=== PATIENT | female | born 1985 | race African-American/Black ===

== ENCOUNTER 2024-04-26 20:49 | Inpatient (IN) | payer OTHER, SELFPAY ==
[2024-04-26 21:22] LABS: #Basophils 0.05 10x3/uL (0.0-0.2); %Basophils 0.6 % (0.0-1.0); %Eosinophils 2.9 % (0.0-10.0); %Lymphocytes 37.9 % (21.0-51.0); %Monocytes 6.8 % (0.0-10.0); %Neutrophils 51.7 % (42.0-75.0); Hematocrit 36.6 % (36.0-47.0); Mean Corpuscular HGB CONC 32.8 g/dL (32.0-36.0); Mean Corpuscular Hemoglobin 29.3 pg (27.0-31.0); Mean Corpuscular Volume 89.3 fL (78.0-98.0); Mean Platelet Volume 10.2 fL (7.4-10.4); Platelet Count 300 10x3/uL (130-400); RBC Distribution Width 12.1 % (11.5-14.5)
[2024-04-26 21:36] LABS: ALT (SGPT) 17 U/L (8-55); AST (SGOT) 16 U/L (5-34); Albumin 3.6 g/dL (3.5-5.0); Alkaline Phosphatase 50 U/L (40-110); Anion Gap 16 mmol/L (10-20); BUN (Urea Nitrogen) 9 mg/dL (7.0-18.7); Bilirubin, Total 0.2 mg/dL (0.2-1.2); Calc. Creatinine Clearance 0 mL/min (70-130); Calcium 9.4 mg/dL (7.8-10.44); Carbon Dioxide 23 mmol/L (22-29); Chloride 110 mmol/L (98-107); Estimated GFR 96; Globulin 3.4 g/dL (2.4-3.5); Glucose 109 mg/dL (70-105); Potassium 4.1 mmol/L (3.5-5.1); Sodium 145 mmol/L (136-145)
[2024-04-26] MEDS ORDERED: Sodium Chloride 0.9% 100 ML ONE (22:00)
[2024-04-26] MEDS ORDERED: Cefepime 2 GM VIAL ONE (22:00)
[2024-04-27] MEDS ORDERED: Ampicillin/Sulbactam 3 GM VIAL ONE (01:58)
[2024-04-27] MEDS ORDERED: Sodium Chloride 0.9% 100 ML ONE (01:58)
[2024-04-27] MEDS ORDERED: Acetaminophen 325 MG TAB PO PRN (02:18)
[2024-04-27] MEDS ORDERED: Ondansetron PF 4 MG/2 ML Vial IVP PRN (02:18)
[2024-04-27 02:34] VITALS: BMI 26.6
[2024-04-27] MEDS: Vancomycin (BATCH) 2 GM in Premix 1 BAG IVPB SCH (03:07)
[2024-04-27] MEDS: Enoxaparin 40 MG (0.4 mL) SYRINGE SC SCH ×2 (03:08→07:24)
[2024-04-27 07:12] LABS: #Basophils 0.03 10x3/uL (0.0-0.2); %Basophils 0.3 % (0.0-1.0); %Eosinophils 2.2 % (0.0-10.0); %Monocytes 5.6 % (0.0-10.0); %Neutrophils 66.7 % (42.0-75.0); Hematocrit 35.4 % (36.0-47.0); Hemoglobin 11.2 g/dL (12.0-16.0); Mean Corpuscular HGB CONC 31.6 g/dL (32.0-36.0); Mean Corpuscular Hemoglobin 29.1 pg (27.0-31.0); Mean Corpuscular Volume 91.9 fL (78.0-98.0); Mean Platelet Volume 10.3 fL (7.4-10.4); Platelet Count 262 10x3/uL (130-400); RBC Distribution Width 12.2 % (11.5-14.5); Red Blood Cell (RBC) Count 3.85 mill/uL (4.20-5.40)
[2024-04-27 07:55] LABS: Anion Gap 11 mmol/L (10-20); BUN (Urea Nitrogen) 7 mg/dL (7.0-18.7); Calc. Creatinine Clearance 131 mL/min (70-130); Calcium 8.6 mg/dL (7.8-10.44); Carbon Dioxide 19 mmol/L (22-29); Chloride 114 mmol/L (98-107); Estimated GFR 115; Glucose 94 mg/dL (70-105); Potassium 3.8 mmol/L (3.5-5.1); Sodium 140 mmol/L (136-145)
[2024-04-27] MEDS: Ampicillin/Sulbactam 3 GM in Sodium Chloride 0.9% 100 ML IVPB SCH (08:33)
[2024-04-27 13:41] VITALS: BMI 26.6
[2024-04-27 14:47] LABS: Hep C Index 0.19 S/CO (0-0.79)
[2024-04-27] MEDS: HYDROcodone/Acetaminophen 5/325 mg Tablet PO PRN (15:23)
[2024-04-27] MEDS ORDERED: Iopamidol-370 76% 500 ML MDV (1 ML CHARGE) ONE (16:04)
[2024-04-27 16:05] LABS: HIV (1/2) Antibody/Antigen NONREACTIVE (NonReactive); HIV 1/2 INDEX 0.06 S/CO (<1.00)
[2024-04-27 16:10] LABS: Hep C IgG Ab NONREACTIVE S/CO (NonReactive)
[2024-04-28 07:24] LABS: #Basophils Less than 0.03 10x3/uL (0.0-0.2); %Basophils 0.3 % (0.0-1.0); %Eosinophils 3.1 % (0.0-10.0); %Lymphocytes 39.2 % (21.0-51.0); %Monocytes 7.1 % (0.0-10.0); %Neutrophils 50.1 % (42.0-75.0); Hematocrit 34.5 % (36.0-47.0); Hemoglobin 11.3 g/dL (12.0-16.0); Mean Corpuscular HGB CONC 32.8 g/dL (32.0-36.0); Mean Corpuscular Hemoglobin 29.4 pg (27.0-31.0); Mean Corpuscular Volume 89.8 fL (78.0-98.0); Mean Platelet Volume 10.3 fL (7.4-10.4); Platelet Count 283 10x3/uL (130-400); RBC Distribution Width 12.1 % (11.5-14.5); Red Blood Cell (RBC) Count 3.84 mill/uL (4.20-5.40)
[2024-04-28 07:39] LABS: Anion Gap 10 mmol/L (10-20); BUN (Urea Nitrogen) 7 mg/dL (7.0-18.7); Calc. Creatinine Clearance 121 mL/min (70-130); Calcium 8.6 mg/dL (7.8-10.44); Carbon Dioxide 24 mmol/L (22-29); Chloride 111 mmol/L (98-107); Estimated GFR 104; Glucose 98 mg/dL (70-105); Potassium 4.2 mmol/L (3.5-5.1); Sodium 141 mmol/L (136-145)
[2024-04-28 12:32] VITALS: BP 107/67; TEMP 98.2
== END 2024-04-28 15:50 | disposition home or self-care (01) | DRG 605 ==
LOC: ERS 20:49 → T4-A 04-27 00:48 → OBSVTOIN 04-27 00:48
PROVIDERS: ADMIT Internal Medicine; ATTEND Internal Medicine
DX: S81.852A Open bite, left lower leg, initial encounter (principal); L03.116 Cellulitis of left lower limb; F32.A Depression, unspecified; W54.0XXA Bitten by dog, initial encounter; Y93.9 Activity, unspecified; Y92.89 Other specified places as the place of occurrence of the external cause; Z90.49 Acquired absence of other specified parts of digestive tract; Z79.899 Other long term (current) drug therapy; Z88.1 Allergy status to other antibiotic agents
CPT/HCPCS: 36415; 80048; 80053; 83605; 85025; 86803; 87040; 87070; 87077; 87186; 87205; 87389; 96365; 96366; 96375; 97139; J0295; J0692; J1650; J3370; J3490; Q9967